=== PATIENT | female | born 1960 | race African-American/Black ===

== ENCOUNTER 2019-02-21 19:54 | Observation (INO) | payer OTHER ==
--- OUTSIDE RECORDS SUMMARY | 2019-02-21 19:57 | XMS REPORT | Summary of Care ---
:1960 Author Organization [facility] Address [address] [place] [address]- Encounter HQ Yinar_michelle(FIN) [id number] Date(s): 12/24/18 - 12/24/18 [facility] [address] [place] [address]- Discharge Disposition: Home or Self Care Attending Physician: Ameena Callejas MD Vital Signs Most recent to oldest [Reference Range]: 1 Height 165.1 cm (12/24/18 9:51 AM) Temperature Oral [96.4-99.1 DegF] 98.1 DegF (12/24/18 9:51 AM) Blood Pressure [90-140/60-90 mmHg] 141/87 mmHg *HI* (12/24/18 9:51 AM) Peripheral Pulse Rate [60-100 bpm] 91 bpm (12/24/18 9:51 AM) Weight 138.693 kg (12/24/18 9:51 AM) Body Mass Index 50.88 m2 (12/24/18 9:51 AM) Problem List Condition Effective Dates Status Health Status Informant Acute sinusitis1, 2 04/20/14 Resolved Benign hypertension3 Active Hypercholesteremia(Confirmed) Resolved Hyperlipidemia(Confirmed) Active Hypertension(Confirmed) Resolved Morbid obesity(Confirmed) Active Otitis externa4, 5 04/20/14 Resolved Shoulder pain6 01/27/13 Active 1Data migrated from [employer] on 02/24/15.2Data migrated from [employer] on 02/23/15.3Data migrated from [employer] on 01/06/15.4Data migrated from [employer] on 02/24/15.5Data migrated from [employer] on 02/23/15.6Data migrated from [employer] on 01/06/15. Allergies, Adverse Reactions, Alerts No Known Medication Allergies Medications hydrochlorothiazide-losartan 12.5 mg-50 mg oral tablet 1 tab, PO, Breakfast, # 90 tab, 1 Refill(s), Pharmacy: [id number] Start Date: 12/24/18 Status: Orderedrosuvastatin 10 mg oral tablet 10 mg=1 tab, PO, Bedtime, # 90 tab, 1 Refill(s), Pharmacy: [id number] Start Date: 12/24/18 Status: Ordered Results No data available for this section Immunizations No data available for this section Procedures Procedure Date Related Diagnosis Body Site Status Biopsy of breast1 Completed section Completed Cholecystectomy Completed 1Right Social History Social History Type Response Employment/School 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 Alcohol Never, Alcohol use interferes with work or home: No. Drinks more than intended: No. Others hurt by drinking: No. Ready to change: No. Household alcohol concerns: No. Smoking Status Current every day smoker; Type: Cigarettes; Lives with someone who smokes; Cigarette Smoking Last 365 Days Yes; Reg Smoking Cessation Counseling Yes; Tobacco use per day: 10; Started at age: 26.0; entered on: 12/24/18 Assessment and Plan No data available for this section
--- OUTSIDE RECORDS SUMMARY | 2019-02-21 19:57 | XMS REPORT | Summary of Care ---
:1960 Author Organization [facility] Address [address] [place] [address]- Encounter HQ Yinar_michelle(FIN) [id number] Date(s): 12/10/18 - 12/10/18 [place] [address] [place] [address] [phone] Discharge Disposition: Home or Self Care Attending Physician: VISIT, NURSE STRB XRAY Vital Signs No data available for this section Problem List Condition Effective Dates Status Health Status Informant Acute sinusitis1, 2 04/20/14 Resolved Benign hypertension3 Active Hypercholesteremia(Confirmed) Resolved Hypertension(Confirmed) Resolved Otitis externa4, 5 04/20/14 Resolved Shoulder pain6 01/27/13 Active 1Data migrated from [employer] on 02/24/15.2Data migrated from [employer] on 02/23/15.3Data migrated from [employer] on 01/06/15.4Data migrated from [employer] on 02/24/15.5Data migrated from [employer] on 02/23/15.6Data migrated from [employer] on 01/06/15. Allergies, Adverse Reactions, Alerts No Known Medication Allergies Medications No data available for this section Results No data available for this section Immunizations No data available for this section Procedures Procedure Date Related Diagnosis Body Site Status Biopsy of breast1 Completed section Completed Cholecystectomy Completed 1Right Social History Social History Type Response Employment/School 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 Alcohol Never, Alcohol use interferes with work or home: No. Drinks more than intended: No. Others hurt by drinking: No. Ready to change: No. Household alcohol concerns: No. Smoking Status Current every day smoker; Type: Cigarettes; Lives with someone who smokes; Cigarette Smoking Last 365 Days Yes; Reg Smoking Cessation Counseling Yes; Tobacco use per day: 10; Started at age: 26.0; entered on: 12/10/18 Assessment and Plan No data available for this section
--- OUTSIDE RECORDS SUMMARY | 2019-02-21 19:57 | XMS REPORT | Summary of Care ---
:1960 Author Organization [facility] Address [address] [place] [address]- Encounter HQ Jason_michelle(FIN) [id number] Date(s): 12/10/18 - 12/10/18 [facility] [address] [place] [address]- [phone] Discharge Disposition: Home or Self Care Attending Physician: Ameena Callejas MD Vital Signs Most recent to oldest [Reference Range]: 1 Height 165.1 cm (12/10/18 9:27 AM) Temperature Oral [96.4-99.1 DegF] 98.3 DegF (12/10/18 9:27 AM) Blood Pressure [90-140/60-90 mmHg] 163/88 mmHg *HI* (12/10/18 9:27 AM) Peripheral Pulse Rate [60-100 bpm] 98 bpm (12/10/18 9:27 AM) Weight 141.534 kg (12/10/18 9:27 AM) Body Mass Index 51.92 m2 (12/10/18 9:27 AM) Problem List Condition Effective Dates Status [...] oral tablet 1 tab, PO, Breakfast, # 30 tab, 0 Refill(s), Pharmacy: [id number] Start Date: 12/10/18 Status: Orderedrosuvastatin 10 mg oral tablet 10 mg=1 tab, PO, Bedtime, # 30 tab, 0 Refill(s), Pharmacy: [email or web address] [id number] Start Date: 12/10/18 Status: Ordered Results No data available for this section Immunizations No data available for this section Procedures Procedure Date Related Diagnosis Body Site Status Biopsy of breast1 Completed section Completed Cholecystectomy Completed 1Right Social History Social History Type Response Employment/School 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 Alcohol Never, Alcohol use interferes with work [...]
--- OUTSIDE RECORDS SUMMARY | 2019-02-21 19:57 | XMS REPORT | Continuity of Care Document ---
:1960 Author Organization [facility] Care Team Providers Name Role Phone [facility] Unavailable Unavailable Problems Problem Status Onset Classification Date Comments Source Date Reported Acute sinusitis1, 2 Resolved Problem 12/26/2018 Data migrated from [employer] on 02/24/15. 014 Data migrated from [employer] on 02/23/15. Medical Group Otitis externa4, 5 Resolved Problem 12/26/2018 Data migrated from [employer] on 02/24/15. 014 Data migrated from [employer] on 02/23/15. Medical Group Shoulder pain6 Active Problem 12/26/2018 Data 013 migrated Medical from [employer] on 01/06/15. Benign hypertension3 Active Problem 12/26/2018 Data MH migrated Medical from [employer] on 01/06/15. Hypercholesteremia Resolved Problem 12/26/2018 Medical Group Hypertension Resolved Problem 12/26/2018 Medical Group Hyperlipidemia Active Problem 12/26/2018 Medical Group Morbid obesity Active Problem 12/26/2018 [facility] Group Medications Medication Details Route Status Patient Ordering Order Source Instructions Provider Date rosuvastatin 10 mg 10 mg=1 Active oral tablet tab, PO, 2018 Medical Bedtime, # Group 90 tab, 1 Refill(s), Pharmacy: [facility] [id number] Hydrochlorothiazide 1 tab, PO, Active 12.5 MG / Losartan Breakfast, 2018 Medical Potassium 50 MG Oral # 90 tab, 1 Group Tablet Refill(s), Pharmacy: [facility] [id number] rosuvastatin 10 mg 10 mg=1 Active oral tablet tab, PO, 2018 Medical Bedtime, # Group 30 tab, 0 Refill(s), Pharmacy: [facility] [id number] Hydrochlorothiazide 1 tab, PO, Active 12.5 MG / Losartan Breakfast, 2019 Medical Potassium 50 MG Oral # 30 tab, 0 Group Tablet Refill(s), Pharmacy: [facility] [address] Ceftriaxone 1 gm, Inactive Route: IM, 2018 Medical Drug form: Group PDR/INJ, ONCE, Dosing Weight 138.182, kg, Start date: 10/19/18 9:01:00 CDT, Stop date: 10/19/18 9:01:00 CDT Levalbuterol 1.25 mg, Inactive Route: NEB, 2018 Medical Drug form: Group SOLN, ONCE, Dosing Weight 138.182, kg, Start date: 10/19/18 9:01:00 CDT, Stop date: 10/19/18 9:01:00 CDT 200 ACTUAT Albuterol 2 puff, Active 0.09 MG/ACTUAT INHALER, 2019 Medical Metered Dose Inhaler Q6H, PRN Group [ProAir HFA] for wheezing, # 8.5 gm, 0 Refill(s), Pharmacy: [facility] [id number] Amoxicillin 875 MG / 875 mg=1 Active Clavulanate 125 MG tab, PO, 2019 Medical Oral Tablet BID, X 10 Group [Augmentin 875-mg] day, # 20 tab, 0 Refill(s), Pharmacy: [facility] [id number] Ipratropium [place] 2 spray, Active 0.042 MG/ACTUAT NASAL, TID, 2019 Medical Metered Dose Nasal PRN for Group [place] [Atrovent] cold symptoms, [place] in both nostrils, X 30 day, # 1 ea, 0 Refill(s), Pharmacy: [facility] [id number] Allergies, Adverse Reactions, Alerts Substance Category Reaction Severity Reaction Status Date Comments Source type Reported No Known Assertion Drug MH Medication allergy Medical Allergies Group Immunizations No Data Provided for This Section Results No Data Provided for This Section Pathology Reports No Data Provided for This Section Diagnostic Reports Report Value Date Source Knee 3 Views Bilateral Bilateral knees 3 views each: 12/10/2018 [facility] HISTORY: Pain for 3 months. FINDINGS: There are mild changes of osteoarthritis in both knees with narrowing of joint space small marginal osteophyte formation. Changes are most pronounced in the medial compartment and patellofemor al joint. No fracture, dislocation or knee joint effusion bilaterally. No bony lytic process SL: EG-M Consultation Notes No Data Provided for This Section Discharge Summaries No Data Provided for This Section History and Physicals No Data Provided for This Section Vital Signs Vital Sign Value Date Comments Source BMI Calculated 50.88 12/24/2018 Medical Group Weight 138.693 12/24/2018 Medical Group Height 165.1 cm 12/24/2018 Medical Group Systolic (mm Hg) 141 12/24/2018 Medical Group Diastolic (mm Hg) 87 12/24/2018 Medical Group Heart Rate 91 12/24/2018 Medical Group Temperature Oral (F) 98.1 F 12/24/2018 Medical Group Height 165.1 cm 12/10/2018 Medical Group Weight 141.534 12/10/2018 Medical Group BMI Calculated 51.92 12/10/2018 Medical Group Temperature Oral (F) 98.3 F 12/10/2018 Medical Group Heart Rate 98 12/10/2018 Medical Group Systolic (mm Hg) 163 12/10/2018 Medical Group Diastolic (mm Hg) 88 12/10/2018 Medical Group Temperature Oral (F) 98.5 F 10/19/2018 Medical Group Heart Rate 96 10/19/2018 Medical Group Systolic (mm Hg) 140 10/19/2018 Medical Group Diastolic (mm Hg) 85 10/19/2018 Medical Group Weight 138.182 10/19/2018 Medical Group BMI Calculated 50.69 10/19/2018 Medical Group Height 165.1 cm 10/19/2018 [facility] Group Encounters Location Location Encounter Encounter Reason Attending ADM DC Status Source Details Type Number For Provider Date Date Visit Outpatient [id number] AMEENA 10/19 [facility] /2018 [facility] Outpatient [id number] Ameena 10/19 10/20 [facility] /2018 [facility] [place] Out[facility] [id number] Ameena 12/10 [facility] [place] [facility] [id number] NURSE 12/10 Active [facility] VISIT /2018 [facility] Outpatient [id number] Ameena 12/10 12/11 Family [facility] /2018 [facility] Outpatient [id number] NURSE 12/10 12/11 Radiology VISIT /2018 [facility] Between [id number] 12/13 12/14 Family Visit /2018 [facility] Outpatient [id number] 12/13 [facility] [place] [facility] Between [id number] 12/23 12/24 Family Visit /2018 [facility] [id number] Ameena 12/24 [facility] [place] [facility] [place] [facility] Outpatient [id number] Ameena 12/24 12/25 [facility] [place] /2018 [facility] Procedures Procedure Code Date Perfomer Comments Source Biopsy of [id number] Right Medical breast<sup>1</sup> Group section [id number] Medical Group Cholecystectomy [id number] Medical Group Assessment and Plan No Data Provided for This Section Plan of Care No Data Provided for This Section Social History Social History Date Source Social History TypeResponse 10/19/2018 [facility] Group Employment/School 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 Alcohol Never, Alcohol use interferes with work or home: No. Drinks more than intended : No. Others hurt by drinking: No. Ready to change: No. Household alcohol concerns: No. Smoking Status Current every day smoker; Type: Cigarettes; Lives with someone who smokes; Cigarette Smoking Last 365 Days Yes; Reg Smoking Cessation Counseling Yes; Tobacco use per day: 10; Started at age: 26.0; entered on: 12/24/18 Family History No Data Provided for This Section Advance Directives No Data Provided for This Section Functional Status No Data Provided for This Section
--- OUTSIDE RECORDS SUMMARY | 2019-02-21 19:57 | XMS REPORT | Summary of Care ---
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 Alcohol Never, Alcohol use interferes with work [...]
--- OUTSIDE RECORDS SUMMARY | 2019-02-21 19:57 | XMS REPORT | Summary of Care ---
:1960 Author Organization [facility] Address [address] [place] [address]- Encounter HQ Jason_michelle(FIN) [id number] Date(s): 12/12/18 - 12/13/18 [facility] [address] [place] [address]- Vital Signs No data available for this [...] Type Response Employment/School 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 Alcohol Never, Alcohol use interferes with work [...]
--- OUTSIDE RECORDS SUMMARY | 2019-02-21 19:57 | XMS REPORT | Summary of Care ---
:1960 Author Organization [facility] Address [address] [place] [address]- Encounter HQ Jason_michelle(FIN) [id number] Date(s): 10/19/18 - 10/19/18 [place] [address] [place] [address]- [phone] Discharge Disposition: Home or Self Care Attending Physician: Ameena Callejas MD Vital Signs Most recent to oldest [Reference Range]: 1 Height 165.1 cm (10/19/18 8:35 AM) Temperature Oral [96.4-99.1 DegF] 98.5 DegF (10/19/18 8:35 AM) Blood Pressure [90-140/60-90 mmHg] 140/85 mmHg (10/19/18 8:35 AM) Peripheral Pulse Rate [60-100 bpm] 96 bpm (10/19/18 8:35 AM) Weight 138.182 kg (10/19/18 8:35 AM) Body Mass Index 50.69 m2 (10/19/18 8:35 AM) Problem List Condition Effective Dates Status [...] [employer] on 01/06/15. Allergies, Adverse Reactions, Alerts Substance Reaction Severity Status NKDA Active Medications Atrovent Nasal 0.06% nasal spray 2 spray, NASAL, TID, PRN for cold symptoms, [place] in both nostrils, X 30 day, # 1 ea, 0 Refill(s), Pharmacy: [facility] [id number] Start Date: 10/19/18 Stop Date: 11/18/18 Status: OrderedAugmentin 875 mg oral tablet 875 mg=1 tab, PO, BID, X 10 day, # 20 tab, 0 Refill(s), Pharmacy: [facility] [id number] Start Date: 10/19/18 Stop Date: 10/29/18 Status: OrderedcefTRIAXone 1 gm, Route: IM, Drug form: PDR/INJ, ONCE, Dosing Weight 138.182, kg, Start date : 10/19/18 9:01:00 CDT, Stop date: 10/19/18 9:01:00 CDT Start Date: 10/19/18 Stop Date: 10/19/18 Status: Completedlevalbuterol 1.25 mg, Route: NEB, Drug form: SOLN, ONCE, Dosing Weight 138.182, kg, Start date: 10/19/18 9:01:00 CDT, Stop date: 10/19/18 9:01:00 CDT Start Date: 10/19/18 Stop Date: 10/19/18 Status: CompletedProAir HFA 90 mcg/inh inhalation aerosol with adapter 2 puff, INHALER, Q6H, PRN for wheezing, # 8.5 gm, 0 Refill(s), Pharmacy: [facility] [id number] Start Date: 10/19/18 Status: Ordered Results No data available for this section Immunizations No data available for this section Procedures Procedure Date Related Diagnosis Body Site Status Biopsy of breast1 Completed section Completed Cholecystectomy Completed 1Right Social History Social History Type Response Employment/School 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 Alcohol Never, Alcohol use interferes with work or home: No. Drinks more than intended: No. Others hurt by drinking: No. Ready to change: No. Household alcohol concerns: No. Smoking Status Current every day smoker; Type: Cigarettes; Lives with someone who smokes; Cigarette Smoking Last 365 Days Yes; Reg Smoking Cessation Counseling Yes; Tobacco use per day: 10; Started at age: 26.0; entered on: 10/19/18 Assessment and Plan No data available for this section
[2019-02-21] MEDS ORDERED: MORPHINE 4 MG/ML SYR ONE (21:05)
[2019-02-21] MEDS ORDERED: NA CHLORIDE 0.9% 1,000 ML ONE (21:05)
[2019-02-21] MEDS ORDERED: KETOROLAC 30 MG/ML INJ ONE (21:05)
[2019-02-21] MEDS ORDERED: ONDANSETRON 4 MG/2 ML VIAL ONE (21:05)
[2019-02-21 21:12] LABS: Absolute Lymphocytes (CBC) 2.6 K/uL (0.7-4.9); Basophils % 0.9 % (0-1.3); Eosinophils % 2.6 % (0-4.4); Hematocrit 44.1 % (36.0-45.0); Lymphocytes % 26.5 % (15.3-44.8); MPV 8.2 fL (7.6-11.3); Monocytes % 7.8 % (3.3-12.3); RBC Red Blood Cell Count 4.98 M/uL (3.86-4.86)
[2019-02-21 21:18] LABS: Protime INR 0.89
[2019-02-21 21:33] LABS: ALT/SGPT 19 U/L (12-78); AST/SGOT 13 U/L (15-37); Albumin 3.8 g/dL (3.4-5.0); Alkaline Phosphatase 94 U/L (45-117); BUN Blood Urea Nitrogen 20 mg/dL (7-18); Bicarbonate 27 mmol/L (21-32); Bilirubin Direct < 0.1 mg/dL (0-0.2); Bilirubin Total 0.2 mg/dL (0.2-1.0); Glucose Level 100 mg/dL (74-106); Magnesium 2.5 mg/dL (1.8-2.4); NT PRO-BNP 62 pg/mL (<125); Potassium 4.6 mmol/L (3.5-5.1); Sodium Level 138 mmol/L (136-145); Troponin (Emerg Dept Use Only) 0.17 ng/mL (0.0-0.045)
[2019-02-21] MEDS ORDERED: ASPIRIN EC 81 MG TAB PO ONE ×2 (21:34→22:13)
--- NOTE | 2019-02-21 21:41 | ER ---
Nurse's Notes [facility] Name: Liz Novak Age: 58 yrs Sex: Female : 1960 Arrival Date: 02/21/2019 Time: 20:00 Bed 23 Private MD: Diagnosis: Chest pain, unspecified;Essential (primary) hypertension;Non-ST elevation (NSTEMI) myocardial infarction Presentation: 02/21 20:01 Presenting complaint: Patient states: "My neck has been hurting really bad, and my left lp1 arm has been hurting"; Neck pain since Thursday morning, left arm pain and headache that began today. Transition of care: patient was not received from another setting of care. Onset of symptoms was February 21, 2019. Risk Assessment: Do you want to hurt yourself or someone else? Patient reports no desire to harm self or others. Care prior to arrival: None. 20:01 Method Of Arrival: Ambulatory lp1 20:01 Acuity: JEAN CARLOS 3 lp1 20:04 Initial Sepsis Screen: Does the patient meet any 2 criteria? No. Patient's initial lp1 sepsis screen is negative. Does the patient have a suspected source of infection? No. Patient's initial sepsis screen is negative. Historical: - Allergies: 20:03 No Known Allergies; lp1 - Home Meds: 20:03 losartan-hydrochlorothiazide oral oral [Active]; rosuvastatin oral oral [Active]; lp1 - PMHx: 20:03 Hypertension; Hyperlipidemia; lp1 - PSHx: 20:03 Cholecystectomy; ; lp1 - Immunization history:: Adult Immunizations up to date. - Social history:: Smoking status: Patient uses tobacco products, smokes one-half pack cigarettes per day. - Ebola Screening: : No symptoms or risks identified at this time. Screenin:30 Abuse screen: Denies threats or abuse. Denies injuries from another. Nutritional sr6 screening: No deficits noted. Tuberculosis screening: No symptoms or risk factors identified. Fall Risk IV access (20 points). Assessment: 20:30 General: Appears in no apparent distress. comfortable, obese, well groomed, Behavior is sr6 calm, cooperative, appropriate for age. Pain: Complains of pain in left arm and neck and face and left jaw Pain currently is 7 out of 10 on a pain scale. Pain began 2-3 days ago. Is intermittent. Neuro: Level of Consciousness is awake, alert, obeys commands, Oriented to person, place, time, situation, Reports headache. Cardiovascular: Heart tones S1 S2 present Capillary refill < 3 seconds Patient's skin is warm and dry. Pulses are all present. Rhythm is sinus rhythm. Respiratory: Airway is patent Respiratory effort is even, unlabored, Respiratory pattern is regular, symmetrical, Breath sounds are clear bilaterally. GI: Abdomen is round non-distended, Bowel sounds present X 4 quads. Abd is soft and non tender Reports nausea, since 2 days ago. : No deficits noted. No signs and/or symptoms were reported regarding the genitourinary system. EENT: No deficits noted. No signs and/or symptoms were reported regarding the EENT system. Derm: Skin is intact, is healthy with good turgor, Skin is pink, warm \\T\\ dry. Musculoskeletal: Circulation, motion, and sensation intact. Capillary refill < 3 seconds, Range of motion: intact in all extremities. 21:25 Reassessment: Patient appears in no apparent distress at this time. Patient and/or sr6 family updated on plan of care and expected duration. Pain level reassessed. Patient is alert, oriented x 3, equal unlabored respirations, skin warm/dry/pink. 22:20 Reassessment: Patient appears in no apparent distress at this time. Patient and/or sr6 family updated on plan of care and expected duration. Pain level reassessed. Patient is alert, oriented x 3, equal unlabored respirations, skin warm/dry/pink. 23:15 Reassessment: Patient appears in no apparent distress at this time. Patient and/or sr6 family updated on plan of care and expected duration. Pain level reassessed. Patient is alert, oriented x 3, equal unlabored respirations, skin warm/dry/pink. Vital Signs: 20:04 BP 178 / 84; Pulse 100; Resp 20; Temp 98(TE); Pulse Ox 99% on R/A; Weight 133.36 kg lp1 (R); Height 5 ft. 5 in. (165.10 cm); Pain 7/10; 21:00 BP 175 / 94; Pulse 91; Resp 20 S; Pulse Ox 98% on R/A; sr6 22:00 BP 170 / 96; Pulse 90; Resp 18 S; Pulse Ox 96% on R/A; Pain 4/10; sr6 22:45 BP 168 / 99; Pulse 90; Resp 20; Temp 98.5; Pulse Ox 97% on R/A; Pain 4/10; ca1 20:04 Body Mass Index 48.92 (133.36 kg, 165.10 cm) lp1 ED Course: 20:00 Patient arrived in ED. es 20:02 Triage completed. lp1 20:04 Arm band placed on right wrist. lp1 20:05 George Pena MD is Attending Physician. wally 20:13 Loly Reinoso, SILVIO is Primary Nurse. aj 20:30 Patient has correct armband on for positive identification. Placed in gown. Bed in low sr6 position. Call light in reach. Side rails up X 1. monitoring engineer on. Pulse ox on. NIBP on. Door closed. Noise minimized. Lights dimmed. Warm blanket given. 20:30 No provider procedures requiring assistance completed. sr6 21:00 Inserted saline lock: 22 gauge in right forearm, using aseptic technique. Blood sr6 collected. 21:06 EKG done, by ED staff, reviewed by George Pena MD. jp3 21:22 XRAY Chest (1 view) In Process Unspecified. EDMS 21:39 Charlotte Szymanski MD is Hospitalizing Provider. [facility] 21:56 EKG done, by ED staff, reviewed by George Pena MD. jp3 22:45 Urine collected: clean catch specimen, clear, mayela colored. jp3 23:00 Patient admitted, IV remains in place. sr6 Administered Medications: 21:03 Drug: Zofran 4 mg Route: IVP; Site: right forearm; sr6 22:16 Follow up: Response: No adverse reaction; Nausea is decreased ca1 21:05 Drug: morphine 4 mg Route: IVP; Site: right forearm; sr6 22:15 Follow up: Response: No adverse reaction; Pain is decreased ca1 21:14 Drug: TORadol 30 mg Route: IVP; Site: right forearm; sr6 22:00 Follow up: Response: No adverse reaction; Pain is decreased ca1 21:15 Drug: NS 0.9% 500 ml Route: IV; Rate: bolus; Site: right forearm; sr6 22:12 Follow up: Response: No adverse reaction; IV Status: Completed infusion ca1 21:16 Drug: Aspirin 81 mg Route: PO; ca1 22:16 Follow up: Response: No adverse reaction ca1 21:45 Drug: Lopressor 5 mg Route: IVP; Site: right forearm; ca1 22:20 Follow up: Response: Blood pressure is unchanged; Other ca1 22:00 Drug: NS 0.9% 1000 ml Route: IV; Rate: 125 ml/hr; Site: right forearm; ca1 22:14 Follow up: IV Status: Infusion continued upon admission ca1 22:00 Drug: PlaVIX 600 mg Route: PO; ca1 22:21 Follow up: Response: No adverse reaction ca1 22:00 Drug: Lopressor (metoprolol TARTRATE) 50 mg Route: PO; ca1 22:19 Follow up: Response: No adverse reaction; Blood pressure is unchanged ca1 22:00 Drug: Aspirin 162 mg Route: PO; ca1 22:17 Follow up: Response: No adverse reaction; Pain is decreased ca1 22:01 Drug: Pepcid 20 mg Route: IVP; Site: right forearm; ca1 22:19 Follow up: Response: No adverse reaction ca1 22:09 Drug: Lovenox 1 mg/kg Route: Sub-Q; Site: right upper arm; ca1 22:20 Follow up: Response: No adverse reaction ca1 23:33 Not Given (Patient Refused): Zofran 4 mg IVP once; over 2 minutes sr6 23:34 Not Given (Patient Refused): morphine 2 mg IVP once sr6 23:34 Not Given (Patient Refused): morphine 2 mg IVP once sr6 23:35 Not Given (pt bp decreased to 168/99): Lopressor 5 mg IVP once; Hold for SBP <100 or HR sr6 <60. Outcome: 21:40 Decision to Hospitalize by Provider. wally 23:10 Admitted to Tele accompanied by nurse, family with patient, via wheelchair, room 408, sr6 with chart, Report called to malvin castellano RN 23:10 Condition: stable 23:10 Instructed on the need for admit. 23:36 Patient left the ED. sr6 Signatures: Dispatcher [employer] Loly De Guzman RN RN aj Anderson, Corey, MD MD cha Salyer, Edna es Pena, Laura, RN RN lp1 Jad Holly jp3 Pat Higuera RN RN ca1 Roque, Sharlyn sr6 Corrections: (The following items were deleted from the chart) 22:47 22:45 BP 168 / 99; Pulse 90bpm; Resp 30bpm; Pulse Ox 97% RA; Temp 98.5F; Pain 4/10; ca1 ca1 23:29 20:25 Reassessment: Patient appears in no apparent distress at this time. Patient sr6 and/or family updated on plan of care and expected duration. Pain level reassessed. Patient is alert, oriented x 3, equal unlabored respirations, skin warm/dry/pink. 6 23:33 23:00 Admitted to Tele accompanied by nurse, family with patient, via wheelchair, room sr6 408, with chart, Report called to malvin castellano RN sr6 23:33 23:00 Condition: stable [place] [id number] 23:33 23:00 Instructed on the need for admit, sr6 sr6
--- NOTE | 2019-02-21 21:41 | EDPHYS ---
Physician Documentation [facility] Name: Liz Novak Age: 58 yrs Sex: Female : 1960 Arrival Date: 02/21/2019 Time: 20:00 Bed 23 Private MD: ED Physician George Pena HPI: 02/21 20:43 This 58 yrs old Black Female presents to ER via Ambulatory with complaints of Neck wally Pain, <24hrs Old, Arm Pain, Jaw Pain. 20:43 The patient or guardian complains of pain. The symptoms are located on the left jaw. wally Onset: The symptoms/episode began/occurred 2 day(s) ago. Context: The problem was sustained at home, at an unknown location. Associated signs and symptoms: The patient has no apparent associated signs or symptoms. The pain does not radiate. Modifying factors: The symptoms are alleviated by remaining still, the symptoms are aggravated by movement. Severity of symptoms: At their worst the symptoms were mild, in the emergency department the symptoms are unchanged. The patient has not experienced similar symptoms in the past. Historical: - Allergies: 20:03 No Known Allergies; lp1 - Home Meds: 20:03 losartan-hydrochlorothiazide oral oral [Active]; rosuvastatin oral oral [Active]; lp1 - PMHx: 20:03 Hypertension; Hyperlipidemia; lp1 - PSHx: 20:03 Cholecystectomy; ; lp1 - Immunization history:: Adult Immunizations up to date. - Social history:: Smoking status: Patient uses tobacco products, smokes one-half pack cigarettes per day. - Ebola Screening: : No symptoms or risks identified at this time. ROS: 20:44 Constitutional: Negative for fever, chills, and weight loss, Eyes: Negative for injury, wally pain, redness, and discharge, ENT: Negative for injury, pain, and discharge, Neck: Negative for injury, pain, and swelling, Respiratory: Negative for shortness of breath, cough, wheezing, and pleuritic chest pain, Abdomen/GI: Negative for abdominal pain, nausea, vomiting, diarrhea, and constipation, Back: Negative for injury and pain, : Negative for injury, bleeding, discharge, and swelling, Skin: Negative for injury, rash, and discoloration, Neuro: Negative for headache, weakness, numbness, tingling, and seizure, Psych: Negative for depression, anxiety, suicide ideation, homicidal ideation, and hallucinations, Allergy/Immunology: Negative for hives, rash, and allergies, Endocrine: Negative for neck swelling, polydipsia, polyuria, polyphagia, and marked weight changes, Hematologic/Lymphatic: Negative for swollen nodes, abnormal bleeding, and unusual bruising. 20:44 Neck: Positive for pain with movement, pain at rest, tenderness. 20:44 Cardiovascular: Negative for chest pain. 20:44 Respiratory: Positive for shortness of breath, at rest. Exam: 20:44 Constitutional: This is a well developed, well nourished patient who is awake, alert, wally and in no acute distress. Head/Face: Normocephalic, atraumatic. Eyes: Pupils equal round and reactive to light, extra-ocular motions intact. Lids and lashes normal. Conjunctiva and sclera are non-icteric and not injected. Cornea within normal limits. Periorbital areas with no swelling, redness, or edema. ENT: Nares patent. No nasal discharge, no septal abnormalities noted. Tympanic membranes are normal and external auditory canals are clear. Oropharynx with no redness, swelling, or masses, exudates, or evidence of obstruction, uvula midline. Mucous membranes moist. Chest/axilla: Normal chest wall appearance and motion. Nontender with no deformity. No lesions are appreciated. Cardiovascular: Regular rate and rhythm with a normal S1 and S2. No gallops, murmurs, or rubs. Normal PMI, no JVD. No pulse deficits. Respiratory: Lungs have equal breath sounds bilaterally, clear to auscultation and percussion. No rales, rhonchi or wheezes noted. No increased work of breathing, no retractions or nasal flaring. Abdomen/GI: Soft, non-tender, with normal bowel sounds. No distension or tympany. No guarding or rebound. No evidence of tenderness throughout. Back: No spinal tenderness. No costovertebral tenderness. Full range of motion. Female : Normal external genitalia. Skin: Warm, dry with normal turgor. Normal color with no rashes, no lesions, and no evidence of cellulitis. MS/ Extremity: Pulses equal, no cyanosis. Neurovascular intact. Full, normal range of motion. Neuro: Awake and alert, GCS 15, oriented to person, place, time, and situation. Cranial nerves II-XII grossly intact. Motor strength 5/5 in all extremities. Sensory grossly intact. Cerebellar exam normal. Normal gait. Psych: Awake, alert, with orientation to person, place and time. Behavior, mood, and affect are within normal limits. 20:44 Neck: External neck: is normal, C-spine: appears grossly normal, no acute changes, Thyroid: appears normal, Trachea: is midline with no obvious abnormalities, ROM/movement: pain, limited range of motion, is not appreciated, Meningeal signs: are not present, nuchal rigidity, is not appreciated. 21:41 Musculoskeletal/extremity: DVT Exam: No signs of deep vein thrombosis. no pain, no wally swelling, no tenderness, negative Homans' sign noted on exam, no appreciated bluish discoloration, no erythema, no increased warmth. Vital Signs: 20:04 BP 178 / 84; Pulse 100; Resp 20; Temp 98(TE); Pulse Ox 99% on R/A; Weight 133.36 kg lp1 (R); Height 5 ft. 5 in. (165.10 cm); Pain 7/10; 21:00 BP 175 / 94; Pulse 91; Resp 20 S; Pulse Ox 98% on R/A; sr6 22:00 BP 170 / 96; Pulse 90; Resp 18 S; Pulse Ox 96% on R/A; Pain 4/10; sr6 22:45 BP 168 / 99; Pulse 90; Resp 20; Temp 98.5; Pulse Ox 97% on R/A; Pain 4/10; ca1 20:04 Body Mass Index 48.92 (133.36 kg, 165.10 cm) lp1 MDM: 20:05 Patient medically screened. [facility] 20:44 Data reviewed: vital signs, nurses notes, lab test result(s), EKG, radiologic studies, [facility] CT scan, plain films. 02/21 20:43 Order name: Basic Metabolic Panel [facility] 02/21 20:43 Order name: CBC with Diff [facility] 02/21 20:43 Order name: LFT's; Complete Time: 21:36 [facility] 02/21 20:43 Order name: Magnesium; Complete Time: 21:36 [facility] 02/21 20:43 Order name: NT PRO-BNP; Complete Time: 21:36 [facility] 02/21 20:43 Order name: PT-INR; Complete Time: 21:25 [facility] 02/21 20:43 Order name: Troponin (emerg Dept Use Only); Complete Time: 21:36 [facility] 02/21 20:44 Order name: Basic Metabolic Panel; Complete Time: 21:36 [facility] 02/21 20:44 Order name: CBC with Automated Diff; Complete Time: 21:25 [facility] 02/21 22:29 Order name: Troponin I [facility] 02/21 22:52 Order name: Urine Dipstick--Ancillary (enter results) ar 02/21 22:57 Order name: Urine Dipstick-Ancillary [facility] 02/21 20:43 Order name: XRAY Chest (1 view) [facility] 02/21 22:30 Order name: Echo with Doppler [facility] 02/21 20:43 Order name: EKG; Complete Time: 20:44 [facility] 02/21 20:43 Order name: Cardiac monitoring; Complete Time: 21:12 [facility] 02/21 20:43 Order name: EKG - Nurse/Tech; Complete Time: 21:12 [facility] 02/21 20:43 Order name: IV Saline Lock; Complete Time: 21:13 [facility] 02/21 20:43 Order name: Labs collected and sent; Complete Time: 21:13 [facility] 02/21 20:43 Order name: O2 Per Protocol; Complete Time: 21:13 [facility] 02/21 20:43 Order name: O2 Sat Monitoring; Complete Time: 21:13 [facility] 02/21 20:43 Order name: Urine Dipstick-Ancillary (obtain specimen); Complete Time: 22:53 [facility] 02/21 21:39 Order name: EKG; Complete Time: 21:39 [facility] 02/21 21:39 Order name: EKG - Nurse/Tech; Complete Time: 22:03 [facility] 02/21 22:30 Order name: CONS Physician Consult [facility] 02/21 22:30 Order name: EKG Electrocardiogram [facility] 02/21 22:30 Order name: EKG Electrocardiogram [facility] 02/21 22:30 Order name: EKG Electrocardiogram [facility] Administered Medications: 21:03 Drug: Zofran 4 mg Route: IVP; Site: right forearm; sr6 22:16 Follow up: Response: No adverse reaction; Nausea is decreased ca1 21:05 Drug: morphine 4 mg Route: IVP; Site: right forearm; sr6 22:15 Follow up: Response: No adverse reaction; Pain is decreased ca1 21:14 Drug: TORadol 30 mg Route: IVP; Site: right forearm; sr6 22:00 Follow up: Response: No adverse reaction; Pain is decreased ca1 21:15 Drug: NS 0.9% 500 ml Route: IV; Rate: bolus; Site: right forearm; sr6 22:12 Follow up: Response: No adverse reaction; IV Status: Completed infusion ca1 21:16 Drug: Aspirin 81 mg Route: PO; ca1 22:16 Follow up: Response: No adverse reaction ca1 21:45 Drug: Lopressor 5 mg Route: IVP; Site: right forearm; ca1 22:20 Follow up: Response: Blood pressure is unchanged; Other ca1 22:00 Drug: NS 0.9% 1000 ml Route: IV; Rate: 125 ml/hr; Site: right forearm; ca1 22:14 Follow up: IV Status: Infusion continued upon admission ca1 22:00 Drug: PlaVIX 600 mg Route: PO; ca1 22:21 Follow up: Response: No adverse reaction ca1 22:00 Drug: Lopressor (metoprolol TARTRATE) 50 mg Route: PO; ca1 22:19 Follow up: Response: No adverse reaction; Blood pressure is unchanged ca1 22:00 Drug: Aspirin 162 mg Route: PO; ca1 22:17 Follow up: Response: No adverse reaction; Pain is decreased ca1 22:01 Drug: Pepcid 20 mg Route: IVP; Site: right forearm; ca1 22:19 Follow up: Response: No adverse reaction ca1 22:09 Drug: Lovenox 1 mg/kg Route: Sub-Q; Site: right upper arm; ca1 22:20 Follow up: Response: No adverse reaction ca1 23:33 Not Given (Patient Refused): Zofran 4 mg IVP once; over 2 minutes sr6 23:34 Not Given (Patient Refused): morphine 2 mg IVP once sr6 23:34 Not Given (Patient Refused): morphine 2 mg IVP once sr6 23:35 Not Given (pt bp decreased to 168/99): Lopressor 5 mg IVP once; Hold for SBP <100 or HR sr6 <60. Disposition: 02/21/19 21:40 Hospitalization ordered by Charlotte Szymanski for Inpatient Admission. Preliminary diagnosis are Chest pain, unspecified, Essential (primary) hypertension, Non-ST elevation (NSTEMI) myocardial infarction. - Bed requested for Telemetry/MedSurg (Inpatient). - Status is Inpatient Admission. sr6 - Condition is Fair. - Problem is new. - Symptoms have improved. UTI on Admission? No Signatures: Dispatcher [employer] EDIA Shelby Cuenca RN RN mw Anderson, Corey, MD MD cha Pena, Laura, RN RN lp1 Pat Higuera RN RN ca1 Mauricio Paty sr6 Corrections: (The following items were deleted from the chart) 21:38 21:32 TROPONIN (EMERG DEPT USE ONLY)+C.LAB.BRZ ordered. [facility] 22:21 21:58 URINE DIPSTICK--ANCILLARY+U.LAB.BRZ ordered. [facility] 22:21 22:13 URINE DIPSTICK--ANCILLARY+U.LAB.BRZ reviewed. [facility] 22:39 21:40 Hospitalization Ordered by Charlotte Szymanski MD for Inpatient Admission. Preliminary diagnosis is Chest pain, unspecified; Essential (primary) hypertension; Non-ST elevation (NSTEMI) myocardial infarction. Bed requested for Telemetry/MedSurg (Inpatient). Status is Inpatient Admission. Condition is Fair. Problem is new. Symptoms have improved. UTI on Admission? No. [facility] 23:36 22:39 02/21/2019 21:40 Hospitalization Ordered by Charlotte Szymanski MD for Inpatient sr6 Admission. Preliminary diagnosis is Chest pain, unspecified; Essential (primary) hypertension; Non-ST elevation (NSTEMI) myocardial infarction. Bed requested for Telemetry/MedSurg (Inpatient). Status is Inpatient Admission. Condition is Fair. Problem is new. Symptoms have improved. UTI on Admission? No. mw
[2019-02-21] MEDS ORDERED: CLOPIDOGREL 75 MG TABLET ONE (22:07)
[2019-02-21] MEDS ORDERED: METOPROLOL TAR 50 MG TAB ONE (22:08)
[2019-02-21] MEDS ORDERED: METOPROLOL TARTRATE 5 MG/5 ML INJ IV ONE (22:09)
[2019-02-21] MEDS ORDERED: ENOXAPARIN 100 MG/ML SYR SQ ONE (22:09)
[2019-02-21] MEDS ORDERED: ENOXAPARIN 30 MG/0.3 ML SQ ONE (22:10)
[2019-02-21] MEDS ORDERED: FAMOTIDINE 20 MG/2 ML VIAL IV ONE (22:10)
[2019-02-21] MEDS ORDERED: MORPHINE 4 MG/ML SYR IV PRN (22:15)
[2019-02-21] MEDS ORDERED: ACETAMINOPHEN 500 MG TAB PO PRN (22:15)
[2019-02-21] MEDS ORDERED: ALPRAZOLAM 0.25 MG TABLET PO PRN (22:15)
[2019-02-21] MEDS ORDERED: ONDANSETRON 4 MG/2 ML VIAL IV PRN (22:15)
[2019-02-21 22:56] LABS: Urine Blood 1+ (NEG); Urine Glucose NEGATIVE (NEG); Urine Protein 2+ (NEG); Urine Specific Gravity 1.025 (1.005-1.030)
[2019-02-22 00:24] VITALS: O2SAT 97
[2019-02-22 00:36] VITALS: BMI 51.8
[2019-02-22 04:30] LABS: Protime INR 0.96
[2019-02-22 04:37] LABS: Absolute Lymphocytes (CBC) 2.5 K/uL (0.7-4.9); Basophils % 0.4 % (0-1.3); Eosinophils % 1.9 % (0-4.4); Hematocrit 38.3 % (36.0-45.0); Lymphocytes % 31.5 % (15.3-44.8); MPV 8.7 fL (7.6-11.3); Monocytes % 6.5 % (3.3-12.3); RBC Red Blood Cell Count 4.36 M/uL (3.86-4.86)
--- NOTE | 2019-02-22 05:00 | P.HP ---
Certification for Inpatient Patient admitted to: Observation With expected LOS: <2 Midnights Patient will require the following post-hospital care: None Practitioner: I am a practitioner with admitting privileges, knowledge of patient current condition, hospital course, and medical plan of care. Services: Services provided to patient in accordance with Admission requirements found in Title 42 Section 412.3 of the Code of Federal Regulations Patient History Date of Service: 02/21/19 Reason for admission: Chest pain rule out acute coronary syndrome/non ST- elevation myocardial inf History of Present Illness: Patient is a 58-year-old female who comes into the hospital with chest discomfort. Pain is mainly in the sternal region. Patient has some shortness of breath associated with the chest discomfort. She denies any diaphoresis or nausea or vomiting. She states she had a cardiac catheterization performed about 2-3 years ago. This was done at [facility] [place]. 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 She does not remember the exact terminology. Will probably need to get her medical records [place] [facility] [place]. She also follows up with the primary care provider in that region. She recently moved back to the [facility]. She is originally from here but at moved over to [place] for a few years before coming back a few months ago. At this time, she is still having some mild chest discomfort. Her troponins are mildly elevated. She will be admitted to the hospital for further workup. Will discuss with Cardiology and she may need to be moved to inpatient hospitalization. Allergies No Known Allergies Allergy (Verified 02/21/19 23:28) Home Medications: Losartan/Hydrochlorothiazide [Losartan-Hctz 50-12.5 mg Tab] 1 tab PO DAILY 02/21 Rosuvastatin [Crestor*] 1 tab PO BEDTIME 02/21/19 - Past Medical/Surgical History Has patient received pneumonia vaccine in the past: No Diabetic: No -: HTN -: High cholesterol -: Arthritis -: -: cholecystectomy -: right breast biopsy - Family History Father Notes: no health issues Mother Medical History: Hypertension, Lung disease, Diabetes Notes: COPD Brother Medical History: Hypertension Notes: both brothers - Social History Smoking Status: Current every day smoker Alcohol use: No CD- Drugs: No Caffeine use: Yes Place of Residence: Home Review of Systems 10-point ROS is otherwise unremarkable Physical Examination - Vital Signs Temperature: 97.2 F Blood Pressure: 155/74 Pulse: 82 Respirations: 18 Pulse Ox (%): 97 - Physical Exam General: Alert, In no apparent distress, Oriented x3 HEENT: Atraumatic, PERRLA, Mucous membr. moist/pink, EOMI, Sclerae nonicteric Neck: Supple, 2+ carotid pulse no bruit, No LAD, Without JVD or thyroid abnormality Respiratory: Clear to auscultation bilaterally, Normal air movement Cardiovascular: Regular rate/rhythm, Normal S1 S2, No murmurs Gastrointestinal: Normal bowel sounds, Soft and benign, Non-distended, No tenderness Musculoskeletal: No clubbing, No swelling, No tenderness Integumentary: No rashes Neurological: Normal gait, Normal speech, Normal strength at 5/5 x4 extr, Normal tone, Sensation intact, Cranial nerves 3-12 intact, Normal affect Lymphatics: No axilla or inguinal lymphadenopathy - Studies Laboratory Data (last 24 hrs) 02/21/19 21:00: PT 10.5, INR 0.89 02/21/19 21:00: WBC 9.7, Hgb 13.9, Hct 44.1, Plt Count 329 02/21/19 21:00: Sodium 138, Potassium 4.6, BUN 20 H, Creatinine 1.17, Glucose 100, Magnesium 2.5 H, Total Bilirubin 0.2, AST 13 L, ALT 19, Alkaline Phosphatase 94 Assessment & Plan - Problems (Diagnosis) (1) Chest pain, rule out acute myocardial infarction Current Visit: Yes Status: Acute (2) Elevated troponin Current Visit: Yes Status: Acute (3) Hypertension Onset Date: 09/09/16 Current Visit: No Status: Acute (4) Morbid obesity Onset Date: 09/09/16 Current Visit: No Status: Acute - Plan 1. Serial troponins and EKG 2. Cardiology consultation 3. Echocardiogram and stress test if cardiology is agreeable 4. Anti-platelet therapy, anti coagulation, beta-de, statin, and O2 as needed 5. IV morphine for pain 6. Nitro p.r.n. 7. Strict blood pressure control. Currently, she is on beta-de. Resume home medications Discharge Plan: Home Plan to discharge in: Greater than 2 days - Advance Directives Does patient have a Living Will: No Does patient have a Durable POA for Healthcare: No - Code Status/Comfort Care Code Status Assessed: Yes Code Status: Full Code Critical Care: No Time Spent Managing PTS Care (In Minutes): 45
[2019-02-22 05:08] LABS: Albumin 3.1 g/dL (3.4-5.0); Bilirubin Total 0.3 mg/dL (0.2-1.0); Magnesium 2.3 mg/dL (1.8-2.4); Potassium 4.6 mmol/L (3.5-5.1); Protein, Total 6.6 g/dL (6.4-8.2); Troponin I 0.5 ng/mL (0.0-0.045)
[2019-02-22] MEDS: METOPROLOL TAR 50 MG TAB PO SCH ×2 (05:42→09:17)
[2019-02-22 06:25] LABS: Urine Appearance CLEAR; Urine Bilirubin NEGATIVE (NEG); Urine Blood TRACE (NEG); Urine Color YELLOW; Urine Glucose NEGATIVE (NEG); Urine Microscopic Reflex ORDER UMIC; Urine Protein NEGATIVE (NEG); Urine Urobilinogen 0.2 mg/dL (0.2-1.0); Urine pH 5.5 (5.0-7.0)
[2019-02-22 06:46] LABS: Urine Bacteria <20 /HPF (<20); Urine Culture Reflex Order REFLEXED; Urine Mucus LIGHT /HPF (NONE SEEN); Urine RBC <5 /HPF (NONE SEEN)
--- NOTE | 2019-02-22 07:54 | RAD REPORT ---
EXAM DESCRIPTION: RAD - Chest Single View - 02/21/2019 9:21 pm CLINICAL HISTORY: Chest pain, abdominal pain, neck pain, left arm pain COMPARISON: August 2016 TECHNIQUE: AP portable chest image was obtained 5 hours . FINDINGS: Lungs are clear. Portable technique and body habitus results in accentuated haziness ovary each lung base. Heart and vasculature are normal. No measurable pleural effusion and no pneumothorax . No acute bony abnormality seen. No acute aortic findings suspected. IMPRESSION: No acute cardiopulmonary process. No significant interval change.
[2019-02-22] MEDS ORDERED: ASPIRIN EC 81 MG TAB PO SCH (09:00)
[2019-02-22] MEDS ORDERED: CLOPIDOGREL 75 MG TABLET PO SCH (09:00)
[2019-02-22] MEDS ORDERED: ENOXAPARIN 40 MG/0.4 ML SQ SCH (09:00)
--- NOTE | 2019-02-22 11:08 | EKG ---
Test Date: 2019-02-22 Test Time: 07:54:54 Staff Internist Office Based Only: SYL MEASUREMENT RESULTS: Intervals: Rate: 67 ME: 186 QRSD: 76 QT: 410 QTc: 433 [place]: P: 67 ME: 186 QRS: 32 T: 62 INTERPRETIVE STATEMENTS: Normal sinus rhythm Cannot rule out Anterior infarct, age undetermined Abnormal ECG Compared to ECG 02/21/2019 21:56:34 No significant changes Electronically Signed On 02-22-19 11:07:11 CDT by Kehinde Small
--- NOTE | 2019-02-22 11:09 | EKG ---
Test Date: 2019-02-21 Test Time: 21:56:34 Nuclear Equipment Operator: SUSHMA MEASUREMENT RESULTS: Intervals: Rate: 86 SD: 172 QRSD: 74 QT: 380 QTc: 454 [place]: P: 64 SD: 172 QRS: 25 T: 89 INTERPRETIVE STATEMENTS: Normal sinus rhythm Cannot rule out Anterior infarct, age undetermined Abnormal ECG Compared to ECG 02/21/2019 21:03:29 Atrial abnormality no longer present Myocardial infarct finding still present Electronically Signed On 02-22-19 11:07:56 CDT by Kehinde Small
--- NOTE | 2019-02-22 11:09 | EKG ---
Test Date: 2019-02-21 Test Time: 21:03:29 Distribution Accounting Clerk: LIANA MEASUREMENT RESULTS: Intervals: Rate: 80 GA: 174 QRSD: 76 QT: 380 QTc: 438 [place]: P: 65 GA: 174 QRS: 25 T: 56 INTERPRETIVE STATEMENTS: Normal sinus rhythm Right atrial enlargement Cannot rule out Anterior infarct, age undetermined Abnormal ECG Compared to ECG 09/08/2016 22:56:04 Myocardial infarct finding now present Electronically Signed On 02-22-19 11:07:57 CDT by Kehinde Small
--- NOTE | 2019-02-22 11:50 | ECHO ---
HEIGHT: 5 ft 5 in WEIGHT: 311 lb 9.6 oz DATE OF STUDY: 02/22/[address]: Charlotte Szymanski MD 2-DIMENSIONAL: YES M.MODE: YES DOPPLER: YES COLOR FLOW: YES TDS: YES PORTABLE: NO DEFINITY: NO BUBBLE STUDY: NO DIAGNOSIS: CHEST PAIN CARDIAC HISTORY: CATHERIZATION: NO SURGERY: NO PROSTHETIC VALVE: NO PACEMAKER: NO MEASUREMENTS (cm) DIASTOLIC (NORMALS) SYSTOLIC (NORMALS) IVSd 1.3 (0.6-1.2) LA Diam 3.5 (1.9-4.0) LVEF 60% LVIDd 4.3 (3.5-5.7) LVIDs 2.9 (2.0-3.5) %FS 32% LVPWd 1.5 (0.6-1.2) Ao Diam 2.5 (2.0-3.7) 2 DIMENSIONAL ASSESSMENT: RIGHT ATRIUM: NORMAL LEFT ATRIUM: NORMAL RIGHT VENTRICLE: NORMAL LEFT VENTRICLE: LEFT VENTRICULAR HYPERTROPHY TRICUSPID VALVE: NORMAL MITRAL VALVE: NORMAL PULMONIC VALVE: NORMAL AORTIC VALVE: NORMAL PERICARDIAL EFFUSION: NONE AORTIC ROOT: NORMAL LEFT VENTRICULAR WALL MOTION: NORMAL DOPPLER/COLOR FLOW: MILD TRICUSPID REGURGITATION. COMMENTS: CONCENTRIC LEFT MILD TRICUSPID REGURGITATION. NORMAL LEFT VENTRICULAR EJECTION FRACTION. NO WALL MOTION ABNORMALITY. MILD TRICUSPID REGURGITATION. NORMAL RIGHT VENTRICULAR SYSTOLIC PRESSURE. TECHNOLOGIST: Colette MELTON
[2019-02-22 12:16] VITALS: BP 138/71; TEMP 97
--- NOTE | 2019-02-22 12:16 | P.SSS ---
Patient History Date of Service: 02/22/19 Reason for admission: Chest pain rule out acute coronary syndrome/non ST- elevation myocardial inf History of Present Illness: Patient is a 58-year-old female who comes into the hospital with chest discomfort. Pain is mainly in the sternal region. Patient has some shortness of breath associated with the chest discomfort. She denies any diaphoresis or nausea or vomiting. She states she had a cardiac catheterization performed about 2-3 years ago. [place] [facility] [place] 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 She does not remember the exact terminology. Will probably need to get her medical records from [facility] in [place]. She also follows up with the primary care provider in that region. She recently moved back to the [facility]. She is originally from here but at moved over to [place] for a few years before coming back a few months ago. At this time, she is still having some mild chest discomfort. Her troponins are mildly elevated. She will be admitted to the hospital for further workup. Will discuss with Cardiology and she may need to be moved to inpatient hospitalization. Allergies No Known Allergies Allergy (Verified 02/21/19 23:28) Home Medications: Losartan/Hydrochlorothiazide [Losartan-Hctz 50-12.5 mg Tab] 1 tab PO DAILY 02/21 Rosuvastatin [Crestor*] 1 tab PO BEDTIME 02/21/19 Carvedilol [Coreg] 6.25 mg PO BID #30 tablet 02/22/19 - Past Medical/Surgical History Has patient received pneumonia vaccine in the past: No Diabetic: No -: HTN -: High cholesterol -: Arthritis -: -: cholecystectomy -: right breast biopsy - Family History Father Notes: no health issues Mother -: Hypertension, Lung disease, Diabetes Notes: COPD Brother -: Hypertension Notes: both brothers - Social History Smoking Status: Current every day smoker Alcohol use: No CD- Drugs: No Caffeine use: Yes Place of Residence: Home Review of Systems 10-point ROS is otherwise unremarkable Physical Examination - Vital Signs Temperature: 97.0 F Blood Pressure: 138/71 Pulse: 69 Respirations: 20 Pulse Ox (%): 98 - Physical Exam General: Alert, In no apparent distress HEENT: Atraumatic, PERRLA, Mucous membr. moist/pink, EOMI, Sclerae nonicteric Neck: Supple, 2+ carotid pulse no bruit, No LAD, Without JVD or thyroid abnormality Respiratory: Clear to auscultation bilaterally, Normal air movement Cardiovascular: Regular rate/rhythm, Normal S1 S2 Gastrointestinal: Normal bowel sounds, No tenderness Musculoskeletal: No tenderness Integumentary: No rashes Neurological: Normal gait, Normal speech, Normal strength at 5/5 x4 extr, Normal tone, Normal affect Lymphatics: No axilla or inguinal lymphadenopathy - Studies Laboratory Data (last 24 hrs) 02/21/19 21:00: PT 10.5, INR 0.89 02/21/19 21:00: WBC 9.7, Hgb 13.9, Hct 44.1, Plt Count 329 02/21/19 21:00: Sodium 138, Potassium 4.6, BUN 20 H, Creatinine 1.17, Glucose 100, Magnesium 2.5 H, Total Bilirubin 0.2, AST 13 L, ALT 19, Alkaline Phosphatase 94 Treatment Summary: Overall during the hospital stay patient remained stable Patient was initially admitted to the hospital for chest pain rule out ACS. Troponin x2 was negative. EKG was within normal limits. Patient was admitted due to her I heard score. Cardiology was consulted. Patient has had recent heart catheterization on 3 different occasions starting August 2018 all 3 of heart catheterization has been within normal limits without any lesions. Patient did have elevated blood pressure when she came to the hospital. Patient 's chest pain was most likely secondary to demand ischemia. Cardiology recommended the patient could be safely discharged home if her echo is within normal limits. Echo was done here in the hospital which showed no acute abnormality. Patient was started on Coreg 6.25 mg daily to be taken at home. Patient was also asked continue taking her aspirin and Plavix at home. Patient was also prescribed Lipitor along with her blood pressure medication at home. Patient demonstrate understanding of all her new medications and thus was discharged home under stable condition. - Disposition Disposition: ROUTINE DISCHARGE Condition: GOOD Patient Discharge Instructions: Please followup with primary care provider along with cardiology in about 1-2 days post discharge. New medication. Coreg 6.25 b.i.d. Continue taking your losartan/hydrochlorothiazide along with aspirin and Plavix that you get at home. Resume all other medication as prescribed by her primary care provider. Diet: Regular Activity: Ad karlee
--- NOTE | 2019-02-22 16:09 | CON ---
Date of Consultation: 02/22/[address] The patient admitted to Dr. Londono's service on 02/21/2019. I saw the patient on 02/22/2019. Reason For Consultation: Chest pain. History Of Present Illness: Ms. Novak is a -[id number]-[id number] black woman with history of hyperten shelly, dyslipidemia, and obesity. She came in with chest pain that radiates to the jaw, neck and the back. Symptoms have lasted for about 15 to 20 minutes. Denied any nausea, vomiting, or diaphoresis. Denied any shortness of breath. She denied any PND, orthopnea, palpitations, or syncope. She has chronic pedal edema. She had a troponin of 0.17 and 0.50. History Of Present Illness: Ms. Novak interestingly enough said she has had similar symptoms and bl ood work in the past and she has had multiple heart catheterization that revealed no coronary artery disease. She was hypertensive when she came in. Past Medical History: As stated above. Allergies: NONE. Review of Systems: Negative. Social History: Negative. Family History: Negative. Medications: At home include Hyzaar and Crestor. Physical Examination: General: On physical examination, Ms. Novak weighed 311 pounds. Vital Signs: Stable. She was afebrile. She was in a sinus rhythm. HEENT: Exam is negative. Neck: Supple with no bruit, lymphadenopathy, JVD, or thyromegaly. Chest: Her chest was clear to auscultation and percussion. Cardiac: Exam revealed a regular rhythm and rate with S4 gallops. Abdomen: Obese but benign. Extremities: Revealed 1+ edema to the knees but appeared to be chronic. Skin: Dry and intact. Neurological: She was nonfocal. Impression And Plan: Chest pain that is fairly typical and had actually suggested a heart catheteriz ation on Ms. Novak because of her abnormal blood work, but she stated that she has had similar sympt oms, similar blood work in the past with normal heart catheterization x3 in the past. This may be se condary to hypertension and left ventricular hypertrophy. Nevertheless, I am comfortable with her co ntinuing her Hyzaar and Crestor. I think we need to add beta-de and aspirin to her regimen. Ec hocardiogram is pending. If the echocardiogram shows any wall motion abnormalities, I would still covarrubias ggest a heart catheterization. We will see what that shows prior to her going home. She also has dy slipidemia that is on Crestor. Her main problem is her morbid obesity. Her weight is 311 pounds. O bviously, dietary restriction and weight loss is highly recommended. LACHELLE/JOSE F Voice ID: [id number] Report ID: [id number]
[2019-02-22] MEDS ORDERED: ATORVASTATIN 20 MG TAB PO SCH (21:00)
== END 2019-02-22 13:15 | disposition home or self-care (01) ==
LOC: ER 19:54 → ERHOLD 22:37 → 4TH 23:04
PROVIDERS: ADMIT Hospitalist; ATTEND Family Medicine
DX: R07.89 Other chest pain (principal); E78.5 Hyperlipidemia, unspecified; I10 Essential (primary) hypertension; R77.8 Other specified abnormalities of plasma proteins; M19.90 Unspecified osteoarthritis, unspecified site; F17.210 Nicotine dependence, cigarettes, uncomplicated; E66.01 Morbid (severe) obesity due to excess calories; Z79.899 Other long term (current) drug therapy
CPT/HCPCS: 36415; 71045; 80048; 80053; 80061; 80076; 81003; 81015; 83735; 83880; 84100; 84484; 85025; 85610; 85730; 87086; 87088; 93005; 93306; 96361; 96372; 96374; 96375; 99285; G0378; J1650; J2405; J7030

== ENCOUNTER 2022-02-11 08:41 | Emergency (ER) | payer OTHER ==
--- NOTE | 2022-02-11 09:34 | RAD REPORT ---
EXAM DESCRIPTION: RAD - Chest Single View - 02/11/2022 9:17 am CLINICAL HISTORY: DYSPNEA COMPARISON: Portable February 2019 TECHNIQUE: AP portable chest image was obtained 02/11/2022 9:17 am . FINDINGS: No focal lung parenchymal process. No failure or volume overload findings. Mild prominence of the interstitial pattern matches prior imaging. Heart and vasculature are normal. No measurable pleural effusion and no pneumothorax. No acute bony abnormality seen. No acute aortic findings suspected. IMPRESSION: No acute cardiopulmonary process. No significant change from comparison study.
[2022-02-11 09:55] LABS: Potassium 4.3 mmol/L (3.5-5.1); Troponin High Sensitivity 4.2 pg/mL (<58.9)
[2022-02-11 10:58] LABS: Hematocrit 37.1 % (36.0-45.0); Lymphocytes % 15.3 % (15.3-44.8); MCV 85.4 fL (80-100); MPV 7.7 fL (7.6-11.3); RBC Red Blood Cell Count 4.34 M/uL (3.86-4.86)
--- NOTE | 2022-02-11 12:05 | RAD REPORT ---
EXAM DESCRIPTION: CT - Chest For Pe Angio - 02/11/2022 11:49 am CLINICAL HISTORY: dyspnea, elevated D-dimer COMPARISON: Chest For Pe Angio dated 09/09/2016; Chest Single View dated 02/11/2022 TECHNIQUE: Dynamically enhanced 3 mm thick images of the chest were obtained during administration o f approximately 150mL Isovue 370 IV contrast. Coronal and oblique MIP reconstruction images were gene rated and reviewed. Exam utilizes a protocol to evaluate the pulmonary arterial tree. All CT scans are performed using dose optimization technique as appropriate and may include automated exposure control or mA/KV adjustment according to patient size. FINDINGS: No pulmonary emboli are identified. The aorta as imaged shows no acute or suspicious finding. No pericardial thickening or effusion. No infiltrate or mass in the lung parenchyma. No pleural effusion or pleural thickening. No mediastinal or hilar suspicious masses. No chest wall masses or abnormal axillary lymphadenopathy. Thoracic spine degenerative changes are present. No acute or pathologic bone process identifiable. Limited imaging into the uppermost abdomen shows ascites to be present. There is a nodular contour to the liver capsule. The liver is not fully assessed but this suggest cirrhosis or diffuse parenchymal disease. Follow-up can be obtained as warranted. IMPRESSION: No pulmonary emboli identified. No other significant or suspicious chest findings. Limited upper abdomen imaging shows findings suggestive of cirrhosis or diffuse hepatic parenchymal d isease along with ascites.
--- NOTE | 2022-02-11 12:45 | ER ---
Nurse's Notes [facility] Name: Liz Novak Age: 61 yrs Sex: Female : 1960 Arrival Date: 02/11/2022 Time: 08:43 Bed 13 Private MD: Diagnosis: Dyspnea Presentation: 02/11 08:47 Chief complaint: Patient states: having SOB and when she takes a deep breath the center iw of her back hurts and right side of her stomach hurts , SOB started second week of January and got worse over the weekend. Coronavirus screen: Client presents with at least one sign or symptom that may indicate coronavirus-19. Ebola Screen: Patient negative for fever greater than or equal to 101.5 degrees Fahrenheit, and additional compatible Ebola Virus Disease symptoms Patient denies exposure to infectious person. Patient denies travel to an Ebola-affected area in the 21 days before illness onset. No symptoms or risks identified at this time. Initial Sepsis Screen: Does the patient meet any 2 criteria? No. Patient's initial sepsis screen is negative. Does the patient have a suspected source of infection? No. Patient's initial sepsis screen is negative. Risk Assessment: Do you want to hurt yourself or someone else? Patient reports no desire to harm self or others. Onset of symptoms was January 22, 2022. 08:47 Method Of Arrival: Ambulatory iw 08:47 Acuity: JEAN CARLOS 3 iw Triage Assessment: 08:55 Respiratory: Breath sounds are clear bilaterally. Onset: The symptoms/episode jh6 began/occurred 3wks, the patient has mild shortness of breath. 08:55 Respiratory: Reports shortness of breath on exertion since 3wks. jh6 Historical: - Allergies: 08:49 No Known Allergies; iw - Home Meds: 08:49 losartan-hydrochlorothiazide 50-12.5 mg oral tab 1 tab once daily [Active]; iw 08:55 losartan-hydrochlorothiazide Oral [Active]; rosuvastatin Oral [Active]; jh6 - PMHx: 08:49 Hyperlipidemia; Hypertension; iw - PSHx: 08:49 section; breast biopsy; Cholecystectomy; hysterectomy; iw - Immunization history:: Client reports receiving the 2nd dose of the Covid vaccine. - Social history:: Smoking status: Patient reports the use of cigarette tobacco products, smokes one-half pack cigarettes per day. Screenin:55 Abuse screen: Denies threats or abuse. jh6 08:55 Nutritional screening: No deficits noted. Tuberculosis screening: No symptoms or risk jh6 factors identified. Fall Risk Secondary diagnosis (15 points) No IV (0 pts). Gait- Weak (10 pts.). Assessment: 08:55 General: Appears in no apparent distress. comfortable, Behavior is calm, cooperative. jh6 08:55 Pain: Complains of pain in thoracic area Pain currently is 6 out of 10 on a pain scale. jh6 Quality of pain is described as aching, Pain began 2-3 days ago. Is continuous, Alleviated by repositioning, Aggravated by repositioning. Cardiovascular: Reports shortness of breath, Cardiovascular: Rhythm is regular. Respiratory: Airway is patent Trachea midline Respiratory effort is even, unlabored, Breath sounds are clear bilaterally. 10:00 Reassessment: No changes from previously documented assessment. jh6 11:30 Reassessment: Patient and/or family updated on plan of care and expected duration. Pain jh6 level reassessed. Patient is alert, oriented x 3, equal unlabored respirations, skin warm/dry/pink. no sob when sitting still. reporting that back in upper are doesn't hurt when pressing into bed. Vital Signs: 08:47 BP 141 / 84; Pulse 98; Resp 18; Temp 97.5; Pulse Ox 100% on R/A; Weight 134.26 kg; iw Height 5 ft. 5 in. (165.10 cm); 11:00 BP 140 / 82; Pulse 80; Resp 16; Pain 3/10; jh6 12:00 BP 140 / 82; Pulse 84; Resp 18; Pulse Ox 100% on R/A; Pain 3/10; jh6 13:12 BP 139 / 80; Pulse 82; Resp 16; Temp 97.6(TE); Pulse Ox 100% ; Pain 2/10; jh6 08:47 Body Mass Index 49.26 (134.26 kg, 165.10 cm) ED Course: 08:43 Patient arrived in ED. mr 08:49 Triage completed. iw 08:50 Arm band placed on. iw 08:51 Sandi Ramirez FNP-C is [facility]. kb 08:51 Jakob Olivia DO is Attending Physician. kb 08:55 Placed in gown. Bed in low position. Call light in reach. Side rails up X 1. jh6 08:59 Abigail Viramontes, RN is Primary Nurse. jh6 09:06 Missed attempt(s): 22 gauge in right forearm. Bleeding controlled, band aid applied, mb4 catheter tip intact. 09:19 XRAY Chest (1 view) In Process Unspecified. EDMS 10:45 Inserted saline lock: 22 gauge in left antecubital area, using aseptic technique. jh6 11:51 Chest For PE Angio CT In Process Unspecified. EDMS 13:16 IV discontinued, intact, bleeding controlled, No redness/swelling at site. Pressure jh6 dressing applied. 13:17 No provider procedures requiring assistance completed. jh6 Administered Medications: No medications were administered Medication: 09:54 VIS not applicable for this client. jh6 Outcome: 12:44 Discharge ordered by . kb 13:17 Discharged to home ambulatory. jh6 13:17 Condition: stable 13:17 Discharge instructions given to patient, family, Instructed on discharge instructions, follow up and referral plans. Demonstrated understanding of instructions, follow-up care. 13:17 Patient left the ED. 6 Signatures: Dispatcher [employer] EDHI Sandi Ramirez, PROJECT GEOPHYSICIST-C PROJECT GEOPHYSICIST-Silva Soto Gabriella Dhillon, RN Vivienne Parker4 Abigail Viramontes, RN RN 6
--- NOTE | 2022-02-11 12:45 | EDPHYS ---
Physician Documentation [facility] Name: Liz Novak Age: 61 yrs Sex: Female : 1960 Arrival Date: 02/11/2022 Time: 08:43 Bed 13 Private MD: ED Physician Jakob Olivia Historical: - Allergies: 02/11 08:49 No Known Allergies; iw - Home Meds: 08:49 losartan-hydrochlorothiazide 50-12.5 mg oral tab 1 tab once daily [Active]; iw 08:55 losartan-hydrochlorothiazide Oral [Active]; rosuvastatin Oral [Active]; 6 - PMHx: 08:49 Hyperlipidemia; Hypertension; iw - PSHx: 08:49 section; breast biopsy; Cholecystectomy; hysterectomy; iw - Immunization history:: Client reports receiving the 2nd dose of the Covid vaccine. - Social history:: Smoking status: Patient reports the use of cigarette tobacco products, smokes one-half pack cigarettes per day. Vital Signs: 08:47 BP 141 / 84; Pulse 98; Resp 18; Temp 97.5; Pulse Ox 100% on R/A; Weight 134.26 kg; iw Height 5 ft. 5 in. (165.10 cm); 11:00 BP 140 / 82; Pulse 80; Resp 16; Pain 3/10; jh6 12:00 BP 140 / 82; Pulse 84; Resp 18; Pulse Ox 100% on R/A; Pain 3/10; jh6 13:12 BP 139 / 80; Pulse 82; Resp 16; Temp 97.6(TE); Pulse Ox 100% ; Pain 2/10; jh6 08:47 Body Mass Index 49.26 (134.26 kg, 165.10 cm) iw MDM: 08:51 Patient medically screened. kb 02/11 08:52 Order name: Basic Metabolic Panel; Complete Time: 10:00 kb 02/11 08:52 Order name: CBC with Diff; Complete Time: 11:09 kb 02/11 08:52 Order name: D-Dimer; Complete Time: 11:17 kb 02/11 08:52 Order name: NT PRO-BNP; Complete Time: 10:00 kb 02/11 08:52 Order name: Troponin HS; Complete Time: 10:00 kb 02/11 08:52 Order name: XRAY Chest (1 view); Complete Time: 09:49 kb 02/11 08:52 Order name: EKG; Complete Time: 08:52 kb 02/11 08:52 Order name: Cardiac monitoring; Complete Time: 09:36 kb 02/11 08:52 Order name: EKG - Nurse/Tech; Complete Time: 09:36 kb 02/11 08:52 Order name: Labs collected and sent; Complete Time: 09:36 kb 02/11 08:52 Order name: O2 Per Protocol; Complete Time: 09:36 kb 02/11 08:52 Order name: O2 Sat Monitoring; Complete Time: 09:36 kb 02/11 11:15 Order name: Chest For PE Angio CT; Complete Time: 12:08 kb Administered Medications: No medications were administered Disposition Summary: 02/11/22 12:44 Discharge Ordered Location: Home kb Condition: Stable kb Diagnosis - Dyspnea kb Followup: kb - With: Emergency Department - When: As needed - Reason: Worsening of condition Followup: kb - With: Private Physician - When: 2 - 3 days - Reason: Recheck today's complaints, Continuance of care, Re-evaluation by your physician Discharge Instructions: - Discharge Summary Sheet kb - Shortness of Breath, Adult, Osvp-of-Ejia kb Forms: - Medication Reconciliation Form kb - Thank You Letter kb - Antibiotic Education kb - Prescription Opioid Use kb Signatures: Dispatcher [employer] Sandi Massey, THUY-C ARCHERY INSTRUCTOR-Gabriella Barnett, RN RN iw Abigail Viramontes RN RN jh6
[2022-02-11 13:27] VITALS: O2SAT 100
[2022-02-11 13:32] VITALS: BP 139/80; TEMP 97.6
--- NOTE | 2022-02-12 11:10 | EKG ---
Test Date: 2022-02-11 Test Time: 09:12:34 Set Builder: HAMILTON MEASUREMENT RESULTS: Intervals: Rate: 85 NH: 162 QRSD: 80 QT: 366 QTc: 435 [place]: P: 59 NH: 162 QRS: 0 T: 33 INTERPRETIVE STATEMENTS: Normal sinus rhythm Possible Left atrial enlargement Left ventricular hypertrophy Inferior infarct, age undetermined Abnormal ECG Compared to ECG 02/22/2019 07:54:54 Left ventricular hypertrophy now present Myocardial infarct finding still present Electronically Signed On 02-12-22 11:06:54 CDT by Rajan Harvey
== END 2022-02-11 13:17 | disposition home or self-care (01) ==
LOC: ER 08:41
DX: R06.00 Dyspnea, unspecified (principal); I10 Essential (primary) hypertension; E78.5 Hyperlipidemia, unspecified; F17.210 Nicotine dependence, cigarettes, uncomplicated
CPT/HCPCS: 93005; 85025; 80048; 36415; 85379; 84484; 83880; 71275; 71045; Q9967